=== PATIENT | female | born 1990 | race Caucasian/White ===

== ENCOUNTER 2024-12-16 13:53 | Day surgery (SDC) | payer SELFPAY ==
[2024-12-16 14:03] VITALS: BP 121/69; PULSE 89; RESP 18; TEMP 36.6; O2SAT 100; BMI 21.5
--- NOTE | 2024-12-16 14:17 | W.ED.ABDPA2 ---
HPI - Abdominal Pain General: Chief Complaint: Dental/Oral Stated Complaint: food stuck in throat Time Seen by Provider: 12/16/24 13:55 Source: patient Mode of arrival: ambulatory Limitations: no limitations History of Present Illness: Patient is a nice 33-year-old female presents to ED today with a complaint of a possible esophageal food impaction. Patient states she was eating steak Monday night when she began feeling like a piece of steak got stuck . She states since then she has felt a foreign body sensation when swallowing and has not been able to tolerate any form of solid foods. She states she can tolerate her saliva and very small sips of water but any normal drinks causes her to immediately vomit. 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 MD elicited complaint: abdominal pain Onset (ago): day(s) Location: Other (esophagus) Severity: mild Radiation: none Migration to: no migration Exacerbating factors: other (swallowing) Relieving factors: nothing Associated Symptoms: Reports no associated symptoms and vomiting (when she tries to eat solids or large drinks); Denies change in bowel habits, fever(s) and nausea Related Data Home Medications ?Medication ?Instructions ?Recorded ?Confirmed No Known Home Medications 12/16/24 12/16/24 Allergies Allergy/AdvReac Type Severity Reaction Status Date / Time No Known Allergies Allergy Verified 12/16/24 14:07 Review of Systems Const: Denies: fever(s) ENMT: Reports: other (fb sensation when swallowing); Denies: throat pain or odynophagia Card: Denies: chest pain Resp: Denies: dyspnea GI: Reports: vomiting (when she tries to eat solids or large drinks); Denies: abdominal pain, nausea or change in bowel habits Musc: Denies: neck pain Neuro: Denies: headache(s) or dizziness Physical Exam Const: COMMON NORMALS: no acute distress, average body habitus, patient oriented x3, no limitations, healthy appearing, alert and well nourished Neck/C-Spine: GENERAL: Yes normal visual inspection Resp: COMMON NORMALS: normal respiratory effort and clear to auscultation bilaterally AUSCULTATION: clear to auscultation bilaterally Cardio: COMMON NORMALS: regular rate and regular rhythm RATE: regular rate RHYTHM: regular rhythm GI: COMMON NORMALS: Normal to inspection, nondistended, normoactive bowel sounds present, Soft to palpation and non-tender PALPATION: Yes Soft to palpation Neuro: COMMON NORMALS: patient oriented x3 SENSORIUM/ORIENTATION: Yes alert Course Consultations: Consultation #1: Dr. Ndiaye-evaluated patient in ED and will take to OR/endoscopy suite Vital Signs: Vital signs: Vital Signs Temperature 97.8 F 12/16/24 14:03 Pulse Rate 89 12/16/24 14:03 Respiratory Rate 18 12/16/24 14:03 Blood Pressure 121/69 12/16/24 14:03 Pulse Oximetry 100 12/16/24 14:03 Oxygen Delivery Me thod Room Air 12/16/24 14:03 MDM - Abdominal Pain Medical Decision Making Patient here with what sounds to be an esophageal food impaction after eating steak Monday night. States she has not been able to eat any form of solid food following this. She can tolerate her saliva and very very small sips of water but anything larger causes her to immediately vomit. She works as a nurse at [employer] so tried to treat as an outpatient with glucagon and nitro without success. She has been evaluated here in the emergency department by Dr. Ndiaye and he will take her to the endoscopy suite. Basic blood work and CXR ordered. He did want to repeat IV glucagon. Medical Records I reviewed the patient's medical records. Lab Data 12/16/24 14:51 12/16/24 14:51 Labs/Radiology: Radiology Impressions Chest X-Ray 12/16/24 14:18 IMPRESSION: No acute abnormality of the chest. Laboratory Results WBC 12.21 10^3/uL (3.29-11.43) H 12/16/24 14:51 RBC 4.63 10^6/uL (3.85-5.65) 12/16/24 14:51 Hgb 13.90 g/dL (11.27-16.99) 12/16/24 14:51 Hct 41.6 % (36-47) 12/16/24 14:51 MCV 89.8 fl (85-98) 12/16/24 14:51 MCH 30.0 pg (27-33) 12/16/24 14:51 MCHC 33.4 g/dL (30-55) 12/16/24 14:51 RDW 11.9 % (12.1-15.1) L 12/16/24 14:51 Plt Count 290 10^3/cmm (157-399) 12/16/24 14:51 MPV 10.2 fL (7.4-10.4) 12/16/24 14:51 Neut % (Auto) 88.1 % 12/16/24 14:51 Lymph % (Auto) 7.2 % 12/16/24 14:51 [place] % (Auto) 3.7 % 12/16/24 14:51 Eos % (Auto) 0.2 % 12/16/24 14:51 Baso % (Auto) 0.3 % 12/16/24 14:51 Neut # (Auto) 10.76 10^3/uL (1.8-7.7) H 12/16/24 14:51 Lymph # (Auto) 0.9 10^3/uL (0.8-4.8) 12/16/24 14:51 [place] # (Auto) 0.5 10^3/uL (0.2-0.9) 12/16/24 14:51 Eos # (Auto) 0.0 10^3/uL (0.0-0.8) 12/16/24 14:51 Baso # (Auto) 0.0 10^3/uL (0.0-0.1) 12/16/24 14:51 Nucleated RBC % (auto) 0 % 12/16/24 14:51 Nucleated RBCs # 0.0 /100WBC 12/16/24 14:51 Sodium 136 mmol/L (136-145) 12/16/24 14:51 Potassium 3.5 mmol/L (3.5-5.1) 12/16/24 14:51 Chloride 98 mmol/L (98-107) 12/16/24 14:51 Carbon Dioxide 23 mmol/L (22-29) 12/16/24 14:51 Anion Gap 18.5 (5-19) 12/16/24 14:51 BUN 10 mg/dL (6-20) 12/16/24 14:51 Creatinine 0.6 mg/dL (0.5-0.9) 12/16/24 14:51 GFR Calculation 114.4 mL/min (90-130) 12/16/24 14:51 Glucose 79 mg/dL (65-115) 12/16/24 14:51 Calculated Osmolality 280 mOsm/kg (285-295) L 12/16/24 14:51 Calcium 9.5 mg/dL (8.5-10.5) 12/16/24 14:51 Total Bilirubin 0.6 mg/dL (0.15-1.2) 12/16/24 14:51 AST 29 U/L (0-32) 12/16/24 14:51 ALT 29 U/L (0-33) 12/16/24 14:51 Alkaline Phosphatase 85 U/L (35-105) 12/16/24 14:51 Total Protein 7.7 g/dL (6.6-8.7) 12/16/24 14:51 Albumin 4.6 g/dL (3.5-5.2) 12/16/24 14:51 Globulin 3.1 g/dL (1.3-4.6) 12/16/24 14:51 HCG, Qual Negative (Negative) 12/16/24 14:51 XR interpretation done by ED provider, pending radiology final review Discharge Plan Discharge Clinical Impression: Food impaction of esophagus Qualifiers: Encounter type: initial encounter Qualified Code(s): T18.128A - Food in esophagus causing other injury, initial encounter Condition: Stable Coding Level of Care Code ED Rehabilitation Nurse for Fina Ledesma
--- NOTE | 2024-12-16 14:18 | XR_ITS ---
WS: [email or web address] XR chest 1V portable [id number] REASON FOR EXAM: fb impaction? FINDINGS: The chest itself is unchanged compared to 11/03/20192011. The heart and mediastinum are within normal limits. Calcified granulomatous disease bilaterally. No acute pulmonary parenchymal or pleural abnormality. No radiopaque foreign body identified within the lungs. In the left upper abdomen there are multiple surgical clips in an unusual pattern that was not present on the previous examination of 11/03/20192011. XR/XR chest 1V portable [id number] IMPRESSION: No acute abnormality of the chest.
[2024-12-16] MEDS: glucagon 1 mg/mL KIT 1 mL IVP (14:44)
--- NOTE | 2024-12-16 14:54 | PM.HP ---
Providers/Chief Complaint Primary Care Provider: Bee Bailon MD Chief Complaint: food stuck in throat History of Present Illness Fiona Rodriguez is a 33 year old female Who presents for esophageal foreign body. She had a steak Monday evening and since then she has been choking, only able to tolerate liquids. She presented to an outside clinic where she received a dose of glucagon without success. She is now here she was referred for possible food bolus disimpaction. According to the patient she has been trying to vomit multiple times and every 10 small amount of material has, but has not able to clear the obstruction. No abdominal pain. Review of Systems General: Reports: 10 or more systems reviewed and unremarkable except in HPI and below Medications/Allergies Home Medications ?Medication ?Instructions ?Recorded ?Confirmed ?Last Taken ?Type No Known Home Medications 12/16/24 12/16/24 Unknown History Allergies Allergy/AdvReac Type Severity Reaction Status Date / Time No Known Allergies Allergy Verified 12/16/24 14:07 Vitals/I&O/Wt Last Vital Signs Temp 97.8 F 12/16/24 14:03 Pulse 89 12/16/24 14:03 Resp 18 12/16/24 14:03 BP 121/69 12/16/24 14:03 Pulse Ox 100 12/16/24 14:03 O2 Del Method Room Air 12/16/24 14:03 Weight last 48 hrs Weight 118 lb Physical Exam Narrative: General : Patient is well developed , no acute distress, oriented x3 Head : Normal cephalic, a-traumatic. Nose : Mucous membranes are without erythema. Lungs : Equal chest rise bilaterally, no use of accessory muscles, trachea is midline. CV : Rate and rhythm are normal. Abdomen : Soft, ND, NT, no g/r/m Extremities : No edema. Upper extremities are normal bilaterally. Back : non-tender to palpation, no CVA tenderness. A&P Assessment and plan (1) Food impaction of esophagus: Qualifiers: Encounter type: initial encounter Qualified Code(s): T18.128A - Food in esophagus causing other injury, initial encounter; W44.F3XA - Food entering into or through a natural orifice, initial encounter Plan Tensive discussion with the patient regarding the proposed treatment. We have offered a EGD with removal of foreign body. I discussed all recent benefits including the risk of injury to the soft tissue of the mouth pharynx and teeth. There is a perforation recurrent surgical intervention transfer to higher level of care, GI bleeding. She shows understanding agrees to proceed. PDMP PDMP Reviewed: Not Reviewed Attestations Medical Necessity Statement*: Patient will be discharged after surgery. Coding Level of Care Code Acute Code for Chg Fwd Diagnoses Food impaction of esophagus T18.128A; W44.F3XA Encounter type: initial encounter
[2024-12-16] MEDS: sodium chloride 0.9% 1,000 ML 30 ML IV (15:05)
[2024-12-16 15:26] LABS: Basophils % 0.3 %; Eosinophils % 0.2 %; Hematocrit 41.6 % (36-47); Lymphocytes # 0.9 10^3/uL (0.8-4.8); Lymphocytes % 7.2 %; Mean Corpuscular HGB Conc 33.4 g/dL (30-55); Mean Corpuscular Volume 89.8 fl (85-98); Mean Platelet Volume 10.2 fL (7.4-10.4); Monocytes # 0.5 10^3/uL (0.2-0.9); Monocytes % 3.7 %; Neutrophils # 10.76 10^3/uL (1.8-7.7); Neutrophils % 88.1 %; Nucleated Red Blood Cells % 0 %; Platelet Count 290 10^3/cmm (157-399); Red Blood Count 4.63 10^6/uL (3.85-5.65); Red Cell Distribution Width 11.9 % (12.1-15.1); White Blood Count 12.21 10^3/uL (3.29-11.43)
[2024-12-16 15:53] LABS: Alanine Aminotransferase 29 U/L (0-33); Albumin Level 4.6 g/dL (3.5-5.2); Alkaline Phosphatase 85 U/L (35-105); Anion Gap 18.5 (5-19); Aspartate Amino Transferase 29 U/L (0-32); Blood Urea Nitrogen 10 mg/dL (6-20); Calcium 9.5 mg/dL (8.5-10.5); Carbon Dioxide 23 mmol/L (22-29); Chloride 98 mmol/L (98-107); Globulin 3.1 g/dL (1.3-4.6); Glomerular Filtration Rate 114.4 mL/min (90-130); Glucose 79 mg/dL (65-115); Osmolality Calculated 280 mOsm/kg (285-295); Potassium 3.5 mmol/L (3.5-5.1); Sodium 136 mmol/L (136-145); Total Bilirubin 0.6 mg/dL (0.15-1.2); Total Protein 7.7 g/dL (6.6-8.7)
[2024-12-16 15:56] LABS: HCG, Serum Qual Negative (Negative)
[2024-12-16 17:16] VITALS: BP 147/84; PULSE 115; RESP 18; TEMP 36.3; O2SAT 100
[2024-12-16 17:21] VITALS: BP 137/85; PULSE 109; RESP 18; O2SAT 100
[2024-12-16 17:26] VITALS: BP 128/70; PULSE 100; RESP 18; O2SAT 100
[2024-12-16 17:31] VITALS: BP 133/83; PULSE 100; RESP 18; O2SAT 100
[2024-12-16 17:36] VITALS: BP 128/90; PULSE 99; RESP 18; O2SAT 100
[2024-12-16] MEDS: ondansetron 2 mg/ML SDV 2 mL 4 MG IVP (18:05)
== END 2024-12-16 18:02 | disposition home or self-care (01) ==
LOC: ER 14:39 → OR 14:49
PROVIDERS: Emergency Provider Physician Assistant; PCP Family Medicine; Visit Provider Surgery
PROC: 0DJ08ZZ Inspection of Upper Intestinal Tract, Via Natural or Artificial Opening Endoscopic (ICD-10-PCS; principal; 2024-12-16 15:00)
DX: T18.128A Food in esophagus causing other injury, initial encounter (principal); W44.F3XA Food entering into or through a natural orifice, initial encounter; K29.70 Gastritis, unspecified, without bleeding; Z98.84 Bariatric surgery status
CPT/HCPCS: 36415; 43239; 43247; 71045; 80053; 84703; 85025; 88305; 99285; J0330; J1100; J1200; J1610; J2405; J2704; J7030

== ENCOUNTER → 2025-01-14 14:01 | Outpatient (BNVA) | payer OTHER, SELFPAY | PROVIDERS: PCP Family Medicine; Visit Provider Surgery | DX: Z09 Encounter for follow-up examination after completed treatment for conditions other than malignant neoplasm (principal); R13.10 Dysphagia, unspecified | CPT/HCPCS: 99213 ==

== ENCOUNTER 2025-02-27 09:32 | Outpatient (CLI) | payer OTHER, SELFPAY ==
--- NOTE | 2025-02-27 10:00 | FL_ITS ---
WS: [email or web address] Modified barium swallow, 02/27/2025 Clinical Data: Frequently throws up, food bolus removed from esophagus 2 months ago Comparison: None. Fluoroscopy time: 1min [id number] # of spot films: 0 Findings: The patient had a normal oral function. Food was propelled normally without delay into the hypopharynx. The pharyngeal phase of swallowing was normal. No aspiration or penetration occurred. The barium tablet flowed from the oral cavity into the hypopharynx and then the esophagus. The esophagus was dilated with poor motility. The barium tablet resided in the distal esophagus and did not pass into the stomach during the examination. There is retained food material in the dilated esophagus. FL/FL barium swallow modifd [id number] Impression: 1. Normal oral and pharyngeal swallowing functions. 2. Dilated esophagus with poor motility and recommend esophagram with upper GI series.
== END 2025-02-27 09:33 | disposition home or self-care (01) ==
LOC: RAD 09:32
PROVIDERS: PCP Family Medicine; Visit Provider Surgery
DX: R13.10 Dysphagia, unspecified (principal)
CPT/HCPCS: 74230; 92611

== ENCOUNTER → 2025-03-05 14:02 | Outpatient (BNVA) | payer OTHER, SELFPAY | PROVIDERS: PCP Family Medicine; Visit Provider Surgery | DX: K22.4 Dyskinesia of esophagus (principal) | CPT/HCPCS: 99213 ==

== ENCOUNTER 2025-03-06 09:42 | Outpatient (CLI) | payer OTHER, SELFPAY ==
--- NOTE | 2025-03-06 10:00 | FL_ITS ---
WS: [email or web address] Barium swallow and esophagram, 03/06/2025 Clinical Data: Frequent regurgitation, food bolus removed from esophagus 2 months ago Comparison: None. Fluoroscopy time: 1min [id number] # of spot films: 52 Findings: The patient swallowed the thick and thin barium, and it flowed through the hypopharynx without hesitation. No stricture, mass, polyp or erosion was seen. No aspiration or penetration occurred. The distal hypopharynx was dilated starting at the C4 level. The barium entered the esophagus and there was absent motility throughout. The esophagus is dilated as much is 4.1 cm. Food debris was still present in the distal esophagus although the patient had not eaten since the night before. The gastroesophageal junction is narrow and there are surgical clips marking the gastric band procedure in the proximal stomach. No erosion, ulceration, fistula, mass, polyp, reflux or hiatal hernia was seen. The barium proceeded slowly into the stomach. FL/FL barium swallow [id number] Impression: 1. Dilatation of distal hypopharynx. 2. Dilatation of entire esophagus with food debris remaining in the distal esop hagus. 3. Absent motility of the esophagus. 4. Narrow gastroesophageal junction.
== END 2025-03-06 09:43 | disposition home or self-care (01) ==
PROVIDERS: PCP Registered Nurse; Visit Provider Surgery
DX: K22.4 Dyskinesia of esophagus (principal); K22.89 Other specified disease of esophagus
CPT/HCPCS: 74220

== ENCOUNTER 2025-03-10 09:55 | Outpatient (CLI) | payer OTHER, SELFPAY ==
--- NOTE | 2025-03-10 10:00 | FL_ITS ---
WS: [email or web address] Exam: FL upper GI series [id number] Date/Time of Exam: 03/10/2025 10:10 AM Reason For Exam: Oropharyngeal phase of swallowing was normal. There is significant dilatation of the esophagus with retained food and mucus in the esophagus with significant stricture at the gastroesophageal junction. Findings suggest achalasia. Postoperative changes of the stomach secondary to gastric sleeve procedure. The stomach was not optimally distended for accurate evaluation. FL/FL upper GI series [id number] IMPRESSION: 1. Findings suggest achalasia with dilatation of the esophagus with significant retention of food debris and mucous with poor motility. Significant stricture at the gastroesophageal junction.
== END 2025-03-10 09:56 | disposition home or self-care (01) ==
PROVIDERS: PCP Registered Nurse; Visit Provider Surgery
DX: K22.4 Dyskinesia of esophagus (principal)
CPT/HCPCS: 74240

== ENCOUNTER → 2025-04-08 08:47 | Outpatient (BNVA) | payer OTHER, SELFPAY | PROVIDERS: PCP Registered Nurse; Referring Provider Registered Nurse; Visit Provider Internal Medicine Rheumatology | DX: R76.8 Other specified abnormal immunological findings in serum (principal); E06.3 Autoimmune thyroiditis; K22.0 Achalasia of cardia; E04.1 Nontoxic single thyroid nodule | CPT/HCPCS: 99204 ==

== ENCOUNTER 2025-05-21 08:59 | Outpatient (CLI) | payer OTHER, SELFPAY ==
--- NOTE | 2025-05-21 09:04 | FL_ITS ---
WS: [email or web address] Barium swallow and esophagram, 05/21/2025 Clinical Data: ESOPHAGEAL SPASM Comparison: Barium swallow, 03/06/2025 Fluoroscopy time: # of spot films: 30 Findings: The patient swallowed the thick and thin barium, and it flowed through the hypopharynx without hesitation. No stricture, mass, polyp or erosion was seen. No aspiration or penetration occurred. The dilatation of the distal hypopharynx has diminished. The barium entered the esophagus and there was poor motility throughout. The esophagus remains dilated related. However the barium passes more rapidly into the stomach and there is less narrowing at the gastroesophageal junction. There are surgical clips at the site of the gastric sleeve surgery. No hiatal hernia, reflux, stricture, polyp, mass, erosion or ulcer was noted. The barium passed normally into the stomach.. FL/FL barium swallow [id number] Impression: 1. Dilatation and poor motility of the esophagus has improved slightly. 2. The gastroesophageal narrowing has improved and the barium passes more rapid ly into the stomach.
== END 2025-05-21 09:00 | disposition home or self-care (01) ==
LOC: RAD 08:59
PROVIDERS: PCP Registered Nurse; Visit Provider Internal Medicine Gastroenterology
DX: K22.4 Dyskinesia of esophagus (principal); K21.9 Gastro-esophageal reflux disease without esophagitis
CPT/HCPCS: 74220

== ENCOUNTER → 2025-06-27 10:48 | Outpatient (BNVA) | payer OTHER, SELFPAY | PROVIDERS: PCP Registered Nurse; Visit Provider Internal Medicine | DX: E07.9 Disorder of thyroid, unspecified (principal); E06.3 Autoimmune thyroiditis; E04.1 Nontoxic single thyroid nodule | CPT/HCPCS: 99204 ==

== ENCOUNTER → 2025-07-28 14:35 | Outpatient (BNVA) | payer OTHER, SELFPAY | PROVIDERS: PCP Registered Nurse; Visit Provider Family Medicine | DX: X58.XXXA Exposure to other specified factors, initial encounter (principal) | CPT/HCPCS: 86705; 86706; 86709; 86803; 87340; 87806 ==